=== PATIENT | male | born 1965 | race Asian ===

== ENCOUNTER 2019-07-09 12:39 | Inpatient (IN) | payer OTHER, SELFPAY ==
[~2019-07-09] VITALS: Ht 172.7 cm; Wt 73.0 kg
[2019-07-09 12:42] VITALS: Ht 172.7 cm; Wt 73.0 kg
[2019-07-09 13:09] LABS: BASOPHIL % 0.2 % (0-2); PLATELET COUNT 321 x10^3mcL (130-400)
[2019-07-09 13:43] LABS: ALBUMIN 3.2 g/dL (3.4-5.0); ALKALINE PHOSPHATASE 35 U/L (46-116); ALT/SGPT 76 U/L (16-63); AST/SGOT 61 U/L (15-37); BILIRUBIN TOTAL 0.5 mg/dL (0.20-1.00); CALCIUM 8.5 mg/dL (8.5-10.1); CARBON DIOXIDE 26.2 mmol/L (21-32); CHLORIDE SERUM 101 mmol/L (98-107); CREATININE SERUM 1.2 mg/dL (0.7-1.3); GFR1 > 60 mL/min; GLUCOSE SERUM 96 mg/dL (74-106); POTASSIUM SERUM 4.4 mmol/L (3.5-5.1); SODIUM SERUM 136 mmol/L (136-145); TOTAL PROTEIN, SERUM 7.5 g/dL (6.4-8.2)
[2019-07-09 13:46] LABS: microscopic required? NO
[2019-07-09 14:04] LABS: C REACTIVE PROTEIN 2.6 mg/dL (<=0.9); LACTIC DEHYDROGENASE (LDH) 332 U/L (100-190)
[2019-07-09] MEDS ORDERED: ZESTRIL20 MG PO (14:16)
[2019-07-09] MEDS ORDERED: ALDACTONE25 MG PO (14:17)
[2019-07-09] MEDS ORDERED: APR25 PO (14:17)
[2019-07-09] MEDS ORDERED: AMLODIPINE BESY10 M2 PO (14:17)
[2019-07-09 14:36] LABS: UA SPECIFIC GRAVITY <=1.005 (1.005-1.035); urine erythrocyte NEGATIVE (NEGATIVE)
[2019-07-09 15:59] VITALS: BP 127/84
[2019-07-09 16:52] VITALS: BP 127/84
[2019-07-09 17:45] VITALS: BP 103/68
[2019-07-09 21:30] VITALS: BP 106/70
[2019-07-09 21:45] VITALS: BP 106/70
[2019-07-10 05:35] VITALS: BP 102/72
[2019-07-10 07:22] LABS: CALCIUM 8.2 mg/dL (8.5-10.1); CARBON DIOXIDE 25.9 mmol/L (21-32); CHLORIDE SERUM 105 mmol/L (98-107); GFR1 > 60 mL/min; GLUCOSE SERUM 100 mg/dL (74-106); POTASSIUM SERUM 4.5 mmol/L (3.5-5.1); SODIUM SERUM 139 mmol/L (136-145)
[2019-07-10 07:45] VITALS: BP 104/67
[2019-07-10 09:15] LABS: BASOPHIL % 0.2 % (0-2); PLATELET COUNT 370 x10^3mcL (130-400); RED CELL DISTRIBUTION WIDTH 13.4 % (11.5-14.5)
[2019-07-10 12:40] VITALS: BP 118/74
[2019-07-10 17:32] VITALS: BP 120/74
[2019-07-10 22:44] VITALS: BP 118/80
[2019-07-11 06:48] VITALS: BP 109/74
[2019-07-11 07:02] LABS: BASOPHIL % 0.4 % (0-2); RED CELL DISTRIBUTION WIDTH 13.8 % (11.5-14.5)
[2019-07-11 07:18] LABS: PLATELET COUNT 434 x10^3mcL (130-400)
[2019-07-11 07:24] LABS: CALCIUM 8.7 mg/dL (8.5-10.1); CARBON DIOXIDE 25.1 mmol/L (21-32); CHLORIDE SERUM 104 mmol/L (98-107); CREATININE SERUM 1.1 mg/dL (0.7-1.3); GFR1 > 60 mL/min; GLUCOSE SERUM 98 mg/dL (74-106); SODIUM SERUM 137 mmol/L (136-145)
[2019-07-11 08:05] VITALS: BP 110/70
[2019-07-11 12:53] VITALS: BP 109/74
[2019-07-11 16:02] VITALS: BP 109/74
[2019-07-11 18:24] VITALS: BP 125/88
== END 2019-07-11 21:21 | disposition other institution (70) | DRG 177 ==
LOC: ED 12:39 → DU 14:00
PROVIDERS: Emergency Medicine; ADMIT Internal Medicine
DX: U07.1 COVID-19 (principal); J12.89 Other viral pneumonia; J96.01 Acute respiratory failure with hypoxia; N39.0 Urinary tract infection, site not specified; Z88.8 Allergy status to other drugs, medicaments and biological substances; I10 Essential (primary) hypertension
CPT/HCPCS: 36600; 83880; 85378; 87804; G0378; J0456; J0696; J1650; J3535; J7040; J7060; Q0092